=== PATIENT | male | born 1985 | race Two or more races ===

== ENCOUNTER → 2018-10-09 | Emergency (ER) | payer OTHER ==
[~2018-10-09] VITALS: Ht 172.7 cm; Wt 101.2 kg
== END | disposition designated cancer center or children's hospital (05) ==
LOC: ER 01:38
DX: S52.591A Other fractures of lower end of right radius, initial encounter for closed fracture (principal); S00.81XA Abrasion of other part of head, initial encounter; S50.812A Abrasion of left forearm, initial encounter; V29.88XA Motorcycle rider (driver) (passenger) injured in other specified transport accidents, initial encounter; Y93.89 Activity, other specified; Y92.488 Other paved roadways as the place of occurrence of the external cause; Y99.8 Other external cause status